=== PATIENT | male | born 1945 | race African-American/Black ===

== ENCOUNTER 2018-10-23 12:46 | Emergency (ER) | payer MEDICARE, OTHER ==
[~2018-10-23] VITALS: Ht 170.2 cm; Wt 73.0 kg
[~2018-10-23 12:46] MED LIST: BENAZEPRIL; HYDROXYZINE; INDOMETHACIN; METFORMIN; TRIAMCINOLONE
[2018-10-23 13:14] VITALS: BP 154/78
== END 2018-10-23 14:36 | disposition home or self-care (01) ==
LOC: ER 12:56
DX: Z00.8 Encounter for other general examination (principal); I10 Essential (primary) hypertension
CPT/HCPCS: 99281

== ENCOUNTER 2022-01-08 14:29 | Inpatient (IN) | payer OTHER, MEDICAID ==
[~2022-01-08] VITALS: Ht 167.6 cm; Wt 79.4 kg
[2022-01-08 15:21] LABS: BASOPHILS % 0.6 % (0.0-2.0); EOSINOPHILS % 4.2 % (0.0-5.0); HEMATOCRIT. 41.3 % (42.0-52.0); HEMOGLOBIN. 13.4 g/dL (14.0-18.0); LYMPHOCYTES % 19.5 % (20.0-50.0); MEAN CORPUSCULAR HEMOGLOBIN 30.8 pg (28.0-32.0); MEAN CORPUSCULAR VOLUME 94.9 fL (80.0-94.0); MONOCYTES % 10.3 % (2.0-8.0); NEUTROPHILS % 65.4 % (40.0-76.0); PLATELET 167 x1000/uL (130-400); RED BLOOD CELL COUNT 4.35 mill/uL (4.7-6.1); RED CELL DISTRIBUTION WIDTH 13.4 % (11.6-14.6)
[2022-01-08] MEDS ORDERED: SODIUM CHLORIDE 0.9% 1,000 ML IV ONE (15:45)
[2022-01-08] MEDS ORDERED: KCL 10MEQ/50ML PREMIX 50 ML IV ONE (15:45)
[2022-01-08] MEDS ORDERED: KCL 10MEQ/50ML PREMIX 50 ML IV NR (16:15)
[2022-01-08] MEDS ORDERED: ENOXAPARIN 40MG/0.4ML SYR SUBCUT SCH (19:30)
[2022-01-08] MEDS ORDERED: MAGNESIUM/ALUMINUM HYDROXIDE/SIMETHICONE 30ML UDC PO PRN (19:30)
[2022-01-08] MEDS ORDERED: NITROGLYCERIN 0.4MG TABLET SL SL PRN (19:30)
[2022-01-08] MEDS ORDERED: CLONIDINE 0.1MG TABLET PO PRN (19:30)
[2022-01-08] MEDS ORDERED: ACETAMINOPHEN 325MG TABLET PO PRN (19:30)
[2022-01-08] MEDS ORDERED: ONDANSETRON HCL 4MG/2ML INJ IV PRN (19:30)
[2022-01-08] MEDS ORDERED: GUAIFENESIN 200MG/10ML SUGAR FREE UDC PO PRN (19:30)
[2022-01-08] MEDS ORDERED: ZOLPIDEM TARTRATE 5MG TABLET PO PRN (19:30)
[2022-01-08] MEDS ORDERED: KETOROLAC 15MG/ML VIAL IV PRN (19:30)
[2022-01-08] MEDS ORDERED: IPRATROPIUM/ALBUTEROL 0.5-3(2.5)MG/3ML NEB NEB PRN (19:30)
[2022-01-08] MEDS ORDERED: DEXTROSE 50% WATER 50ML SYRINGE IV PRN (20:30)
[2022-01-08 21:13] LABS: ETHANOL BLOOD < 10 mg/dL
[2022-01-08 21:14] LABS: TOTAL IRON BINDING CAPACITY 262 ug/dL (250-450)
[2022-01-08 21:15] LABS: LDL CHOLESTEROL 127 mg/dL (5-100)
[2022-01-08] MEDS ORDERED: SODIUM CHLORIDE 0.9% 1000ML BAG (SEPSIS BOLUS) IV NR (21:15)
[2022-01-08 21:18] LABS: HDL CHOLESTEROL 44 mg/dL (40-59); T4 FREE 1.11 ng/dL (0.76-1.46)
[2022-01-08 21:23] LABS: CREATINE KINASE 179 IU/L (39-308)
[2022-01-08 22:19] LABS: FOLIC ACID (FOLATE) SERUM >20 ng/mL ng/mL (>5.38)
[2022-01-08 22:29] LABS: VITAMIN B12 SERUM 663 pg/mL (211-911)
[2022-01-08] MEDS: FAMOTIDINE 20MG TABLET PO SCH (22:38)
[2022-01-08] MEDS: ENOXAPARIN 30MG/0.3ML SYR SUBCUT SCH (22:40)
[2022-01-08] MEDS: BLOOD SUGAR DIAGNOSTIC STRIP TEST SCH (22:52)
[2022-01-09] MEDS: SODIUM CHLORIDE 0.9% 1,000 ML IV SCH ×3 (00:35→22:17)
[2022-01-09] MEDS: INSULIN LISPRO 100 UNITS/ML SUBCUT SCH ×5 (01:34→21:00)
[2022-01-09 06:10] LABS: BASOPHILS % 0.5 % (0.0-2.0); EOSINOPHILS % 6.3 % (0.0-5.0); HEMATOCRIT. 35.6 % (42.0-52.0); HEMOGLOBIN. 11.6 g/dL (14.0-18.0); MEAN CORPUSCULAR HEMOGLOBIN 30.8 pg (28.0-32.0); MEAN CORPUSCULAR VOLUME 94.3 fL (80.0-94.0); MEAN PLATELET VOLUME 10.5 fl (7.4-10.4); MONOCYTES % 11.3 % (2.0-8.0); NEUTROPHILS % 63.9 % (40.0-76.0); PLATELET 154 x1000/uL (130-400); RED BLOOD CELL COUNT 3.77 mill/uL (4.7-6.1); RED CELL DISTRIBUTION WIDTH 13.6 % (11.6-14.6)
[2022-01-09 06:14] LABS: CLARITY URINE CLEAR (CLEAR); COLOR URINE YELLOW (YELLOW); KETONES URINE 1+ (NEGATIVE); LEUKOCYTE ESTERASE URINE TRACE (NEGATIVE); NITRITE URINE NEGATIVE (NEGATIVE); OCCULT BLOOD URINE NEGATIVE (NEGATIVE); PH URINE 6.5 (4.5-8.0); PROTEIN URINE TRACE (NEGATIVE); SPECIFIC GRAVITY URINE 1.021 (1.005-1.030)
[2022-01-09 06:16] LABS: CHLORIDE 118 mEq/L (98-107)
[2022-01-09 06:21] LABS: PHOSPHORUS 2.7 mg/dL (2.5-4.9)
[2022-01-09 06:26] LABS: *AMPHETAMINES SCREEN URINE NEGATIVE (NEGATIVE); *BARBITURATES SCREEN URINE NEGATIVE (NEGATIVE); *BENZODIAZEPINES SCREEN URINE NEGATIVE (NEGATIVE); *COCAINE SCREEN URINE NEGATIVE (NEGATIVE); METHADONE URINE SCREEN NEGATIVE (NEGATIVE)
[2022-01-09 06:27] LABS: CANNABINOID URINE SCREEN NEGATIVE (NEGATIVE); OPIATES URINE SCREEN NEGATIVE (NEGATIVE); PHENCYCLIDINE URINE SCREEN NEGATIVE (NEGATIVE)
[2022-01-09] MEDS: BLOOD SUGAR DIAGNOSTIC STRIP TEST SCH ×4 (07:14→21:00)
[2022-01-09 09:15] VITALS: BP 156/67
[2022-01-09 09:30] VITALS: BP 157/67
[2022-01-09] MEDS: ASPIRIN 325MG EC TABLET PO SCH (09:46)
[2022-01-09] MEDS ORDERED: POTASSIUM CHLORIDE 20MEQ TABLET SR PO NR (11:00)
[2022-01-09 12:00] VITALS: BP 141/55
[2022-01-09 16:25] VITALS: BP 145/61
[2022-01-09 20:00] VITALS: BP 133/68
[2022-01-09] MEDS: FAMOTIDINE 20MG TABLET PO SCH (22:16)
[2022-01-09] MEDS: ENOXAPARIN 30MG/0.3ML SYR SUBCUT SCH (22:16)
[2022-01-10] VITALS: BP 127/52
[2022-01-10 04:00] VITALS: BP 139/59
[2022-01-10] MEDS: BLOOD SUGAR DIAGNOSTIC STRIP TEST SCH ×4 (06:10→20:34)
[2022-01-10] MEDS: INSULIN LISPRO 100 UNITS/ML SUBCUT SCH ×4 (07:50→20:34)
[2022-01-10 08:08] VITALS: BP 120/75
[2022-01-10] MEDS: ASPIRIN 325MG EC TABLET PO SCH (08:57)
[2022-01-10] MEDS ORDERED: PNEUMOCOCCAL 23-VAL P-SAC VAC 0.5 ML IM ONE (09:00)
[2022-01-10] MEDS ORDERED: INFLUENZA VACCINE 05/PF 0.5 ML SYRINGE IM ONE (09:00)
[2022-01-10 12:04] VITALS: BP 135/48
[2022-01-10 12:43] LABS: BASOPHILS % 0.5 % (0.0-2.0); EOSINOPHILS % 7.4 % (0.0-5.0); HEMATOCRIT. 34.9 % (42.0-52.0); HEMOGLOBIN. 11.8 g/dL (14.0-18.0); LYMPHOCYTES % 18.8 % (20.0-50.0); MEAN CORPUSCULAR VOLUME 91.6 fL (80.0-94.0); MEAN PLATELET VOLUME 10.1 fl (7.4-10.4); NEUTROPHILS % 64.3 % (40.0-76.0); PLATELET 131 x1000/uL (130-400); RED BLOOD CELL COUNT 3.82 mill/uL (4.7-6.1); RED CELL DISTRIBUTION WIDTH 13.4 % (11.6-14.6)
[2022-01-10] MEDS: SODIUM CHLORIDE 0.9% 1,000 ML IV SCH (13:01)
[2022-01-10 13:03] LABS: CHLORIDE 118 mEq/L (98-107)
[2022-01-10 13:12] LABS: PHOSPHORUS 2.4 mg/dL (2.5-4.9)
[2022-01-10 16:30] VITALS: BP 138/61
[2022-01-10 20:00] VITALS: BP 144/58
[2022-01-10] MEDS: ENOXAPARIN 30MG/0.3ML SYR SUBCUT SCH (20:37)
[2022-01-10] MEDS: FAMOTIDINE 20MG TABLET PO SCH (20:37)
[2022-01-11] VITALS: BP 138/61
[2022-01-11] MEDS: SODIUM CHLORIDE 0.9% 1,000 ML IV SCH ×2 (00:50→14:10)
[2022-01-11 04:00] VITALS: BP 139/58
[2022-01-11] MEDS: BLOOD SUGAR DIAGNOSTIC STRIP TEST SCH ×4 (06:34→20:55)
[2022-01-11] MEDS: INSULIN LISPRO 100 UNITS/ML SUBCUT SCH ×4 (07:50→20:55)
[2022-01-11 08:06] VITALS: BP 155/69
[2022-01-11] MEDS: ASPIRIN 325MG EC TABLET PO SCH (09:09)
[2022-01-11 12:00] VITALS: BP 151/70
[2022-01-11 16:00] VITALS: BP 141/65
[2022-01-11 20:00] VITALS: BP 152/71
[2022-01-11] MEDS: ENOXAPARIN 30MG/0.3ML SYR SUBCUT SCH (20:56)
[2022-01-11] MEDS: FAMOTIDINE 20MG TABLET PO SCH (20:57)
[2022-01-12] VITALS: BP 140/61
[2022-01-12] MEDS: SODIUM CHLORIDE 0.9% 1,000 ML IV SCH ×2 (02:57→13:01)
[2022-01-12 04:00] VITALS: BP 145/68
[2022-01-12 06:27] LABS: BASOPHILS % 0.6 % (0.0-2.0); HEMOGLOBIN. 10.5 g/dL (14.0-18.0); MONOCYTES % 11.1 % (2.0-8.0)
[2022-01-12 06:31] LABS: EOSINOPHILS % 8.7 % (0.0-5.0); HEMATOCRIT. 30.7 % (42.0-52.0); LYMPHOCYTES % 24.2 % (20.0-50.0); MEAN CORPUSCULAR HEMOGLOBIN 31.2 pg (28.0-32.0); MEAN CORPUSCULAR VOLUME 91.4 fL (80.0-94.0); MEAN PLATELET VOLUME 10.7 fl (7.4-10.4); NEUTROPHILS % 55.4 % (40.0-76.0); PLATELET 125 x1000/uL (130-400); RED BLOOD CELL COUNT 3.36 mill/uL (4.7-6.1); RED CELL DISTRIBUTION WIDTH 13.4 % (11.6-14.6)
[2022-01-12] MEDS: BLOOD SUGAR DIAGNOSTIC STRIP TEST SCH ×4 (07:20→21:06)
[2022-01-12 07:30] LABS: CHLORIDE 117 mEq/L (98-107)
[2022-01-12] MEDS: INSULIN LISPRO 100 UNITS/ML SUBCUT SCH ×4 (07:50→21:00)
[2022-01-12 08:00] VITALS: BP 155/69
[2022-01-12] MEDS: ASPIRIN 325MG EC TABLET PO SCH (09:46)
[2022-01-12] MEDS ORDERED: POTASSIUM CHLORIDE 20MEQ TABLET SR PO NR (11:45)
[2022-01-12 12:00] VITALS: BP 163/77
[2022-01-12 15:00] VITALS: BP 161/110
[2022-01-12 20:00] VITALS: BP 157/75
[2022-01-12] MEDS: ENOXAPARIN 40MG/0.4ML SYR SUBCUT SCH (22:21)
[2022-01-12] MEDS: FAMOTIDINE 20MG TABLET PO SCH (22:22)
[2022-01-13] VITALS: BP 149/70
[2022-01-13 04:00] VITALS: BP 146/68
[2022-01-13] MEDS: SODIUM CHLORIDE 0.9% 1,000 ML IV SCH ×3 (05:12→20:28)
[2022-01-13] MEDS: BLOOD SUGAR DIAGNOSTIC STRIP TEST SCH ×4 (06:35→20:26)
[2022-01-13] MEDS: INSULIN LISPRO 100 UNITS/ML SUBCUT SCH ×4 (07:50→20:26)
[2022-01-13 08:00] VITALS: BP 161/72
[2022-01-13] MEDS: ASPIRIN 325MG EC TABLET PO SCH (09:41)
[2022-01-13] MEDS: DOCUSATE SODIUM 100MG CAPSULE PO PRN (09:41)
[2022-01-13 20:00] VITALS: BP 161/59
[2022-01-13] MEDS: FAMOTIDINE 20MG TABLET PO SCH (20:26)
[2022-01-13] MEDS: ENOXAPARIN 40MG/0.4ML SYR SUBCUT SCH (20:26)
[2022-01-13 23:53] VITALS: BP 175/73
[2022-01-14] MEDS ORDERED: HYDRALAZINE HCL 25MG TABLET PO NR
[2022-01-14 04:07] VITALS: BP 152/77
[2022-01-14] MEDS: HYDRALAZINE HCL 25MG TABLET PO SCH ×4 (06:27→23:35)
[2022-01-14] MEDS: BLOOD SUGAR DIAGNOSTIC STRIP TEST SCH ×4 (06:27→20:41)
[2022-01-14] MEDS: INSULIN LISPRO 100 UNITS/ML SUBCUT SCH ×4 (07:50→20:45)
[2022-01-14 08:00] VITALS: BP 145/77
[2022-01-14] MEDS: ASPIRIN 325MG EC TABLET PO SCH (09:00)
[2022-01-14] MEDS: DOCUSATE SODIUM 100MG CAPSULE PO PRN (09:00)
[2022-01-14 12:00] VITALS: BP 135/84
[2022-01-14 16:09] VITALS: BP 134/57
[2022-01-14 20:00] VITALS: BP 150/69
[2022-01-14] MEDS: FAMOTIDINE 20MG TABLET PO SCH (20:42)
[2022-01-14] MEDS: ENOXAPARIN 40MG/0.4ML SYR SUBCUT SCH (20:42)
[2022-01-15] VITALS: BP 146/72
[2022-01-15 04:00] VITALS: BP 128/88
[2022-01-15] MEDS: HYDRALAZINE HCL 25MG TABLET PO SCH ×3 (05:22→18:39)
[2022-01-15] MEDS: BLOOD SUGAR DIAGNOSTIC STRIP TEST SCH ×3 (06:23→21:59)
[2022-01-15] MEDS: INSULIN LISPRO 100 UNITS/ML SUBCUT SCH ×4 (07:35→21:00)
[2022-01-15 08:00] VITALS: BP 122/64
[2022-01-15] MEDS: ACETAMINOPHEN 325MG TABLET PO PRN ×2 (08:03→13:45)
[2022-01-15] MEDS: ASPIRIN 325MG EC TABLET PO SCH (09:00)
[2022-01-15] MEDS ORDERED: PIPERACILLIN/TAZOBACTAM 3.375 G in DEXTROSE 5% WATER 50 ML IV SCH (10:00)
[2022-01-15 11:57] LABS: HEMATOCRIT. 31.6 % (42.0-52.0); HEMOGLOBIN. 10.5 g/dL (14.0-18.0); MEAN CORPUSCULAR HEMOGLOBIN 31.1 pg (28.0-32.0); MEAN CORPUSCULAR VOLUME 93.6 fL (80.0-94.0); RED BLOOD CELL COUNT 3.37 mill/uL (4.7-6.1); RED CELL DISTRIBUTION WIDTH 13.6 % (11.6-14.6)
[2022-01-15 12:00] VITALS: BP 121/60
[2022-01-15] MEDS ORDERED: LIDOCAINE HCL 1% 20ML VIAL (Pyxis) INJ ONE (12:56)
[2022-01-15 13:04] LABS: PLATELET 142 x1000/uL (130-400)
[2022-01-15] MEDS ORDERED: VANCOMYCIN 1GM PMX (XELLIA) 200 ML IV NR (14:00)
[2022-01-15] MEDS: HYDROCODONE/ACETAMINOPHEN 5/325MG TABLET PO PRN ×2 (14:11→20:30)
[2022-01-15] MEDS ORDERED: NALOXONE HCL 0.4MG/ML VIAL IV PRN (14:15)
[2022-01-15 16:00] VITALS: BP 141/79
[2022-01-15] MEDS: SODIUM CHLORIDE 0.45% 1,000 ML IV SCH (17:55)
[2022-01-15] MEDS ORDERED: POTASSIUM CHLORIDE 20MEQ TABLET SR PO NR (18:30)
[2022-01-15] MEDS: ENOXAPARIN 40MG/0.4ML SYR SUBCUT SCH (22:07)
[2022-01-15] MEDS: PIPERACILLIN/TAZOBACTAM 3.375 G in DEXTROSE 5% WATER 50 ML IV SCH (22:07)
[2022-01-15] MEDS: FAMOTIDINE 20MG TABLET PO SCH (22:07)
[2022-01-16] MEDS: HYDRALAZINE HCL 25MG TABLET PO SCH ×5 (01:14→23:04)
[2022-01-16] MEDS ORDERED: VANCOMYCIN 500 MG in DEXT 5% WATER 100 ML IV SCH (02:00)
[2022-01-16] MEDS ORDERED: PIPERACILLIN/TAZOBACTAM 3.375 G in DEXTROSE 5% WATER 50 ML IV SCH (02:00)
[2022-01-16] MEDS: PIPERACILLIN/TAZOBACTAM 3.375 G in DEXTROSE 5% WATER 50 ML IV SCH ×2 (05:34→14:41)
[2022-01-16] MEDS: SODIUM CHLORIDE 0.45% 1,000 ML IV SCH ×2 (06:08→19:25)
[2022-01-16] MEDS: BLOOD SUGAR DIAGNOSTIC STRIP TEST SCH ×4 (06:09→21:06)
[2022-01-16] MEDS: INSULIN LISPRO 100 UNITS/ML SUBCUT SCH ×4 (06:09→21:00)
[2022-01-16 08:00] VITALS: BP 141/84
[2022-01-16] MEDS: ASPIRIN 325MG EC TABLET PO SCH (08:57)
[2022-01-16] MEDS: HYDROCODONE/ACETAMINOPHEN 5/325MG TABLET PO PRN ×2 (11:53→17:59)
[2022-01-16 12:00] VITALS: BP 148/64
[2022-01-16 16:00] VITALS: BP 142/66
[2022-01-16 17:55] LABS: HEMATOCRIT. 29.6 % (42.0-52.0); HEMOGLOBIN. 9.9 g/dL (14.0-18.0); MEAN CORPUSCULAR HEMOGLOBIN 31.1 pg (28.0-32.0); MEAN CORPUSCULAR VOLUME 92.7 fL (80.0-94.0); MEAN PLATELET VOLUME 10.7 fl (7.4-10.4); PLATELET 123 x1000/uL (130-400); RED BLOOD CELL COUNT 3.19 mill/uL (4.7-6.1)
[2022-01-16 18:00] LABS: CHLORIDE 115 mEq/L (98-107)
[2022-01-16 20:00] VITALS: BP 128/60
[2022-01-16] MEDS: ENOXAPARIN 40MG/0.4ML SYR SUBCUT SCH (20:00)
[2022-01-16 20:15] LABS: PLATELET ESTIMATE SLIGHTLY DECREASED
[2022-01-16] MEDS ORDERED: CEFTRIAXONE 1 G PREMIX 50 ML IV SCH (20:30)
[2022-01-16] MEDS: FAMOTIDINE 20MG TABLET PO SCH (21:46)
[2022-01-16] MEDS: CEFTRIAXONE 1,000 MG in DEXTROSE 5% WATER 50 ML IV SCH (21:46)
[2022-01-16] MEDS: ACETAMINOPHEN 325MG TABLET PO PRN (23:05)
[2022-01-17] VITALS: BP 131/62
[2022-01-17 04:00] VITALS: BP 144/64
[2022-01-17] MEDS: BLOOD SUGAR DIAGNOSTIC STRIP TEST SCH ×4 (06:37→21:00)
[2022-01-17] MEDS: INSULIN LISPRO 100 UNITS/ML SUBCUT SCH ×4 (06:38→21:00)
[2022-01-17] MEDS: HYDRALAZINE HCL 25MG TABLET PO SCH ×3 (06:42→17:17)
[2022-01-17 08:00] VITALS: BP 135/67
[2022-01-17] MEDS: ASPIRIN 325MG EC TABLET PO SCH (08:53)
[2022-01-17] MEDS: DOCUSATE SODIUM 100MG CAPSULE PO PRN ×2 (08:53→17:17)
[2022-01-17] MEDS: SODIUM CHLORIDE 0.45% 1,000 ML IV SCH (08:54)
[2022-01-17] MEDS: HYDROCODONE/ACETAMINOPHEN 5/325MG TABLET PO PRN (09:04)
[2022-01-17 12:00] VITALS: BP 98/50
[2022-01-17] MEDS ORDERED: LACTULOSE 20G/30ML UDC PO NR (12:00)
[2022-01-17 16:00] VITALS: BP 134/68
[2022-01-17] MEDS: ENOXAPARIN 40MG/0.4ML SYR SUBCUT SCH (20:00)
[2022-01-18] MEDS: HYDRALAZINE HCL 25MG TABLET PO SCH ×4 (00:06→16:49)
[2022-01-18] MEDS: CEFTRIAXONE 1,000 MG in DEXTROSE 5% WATER 50 ML IV SCH (00:06)
[2022-01-18] MEDS: FAMOTIDINE 20MG TABLET PO SCH (00:06)
[2022-01-18] MEDS: SODIUM CHLORIDE 0.45% 1,000 ML IV SCH ×2 (00:07→12:39)
[2022-01-18] MEDS: INSULIN LISPRO 100 UNITS/ML SUBCUT SCH ×3 (06:21→16:38)
[2022-01-18] MEDS: BLOOD SUGAR DIAGNOSTIC STRIP TEST SCH ×3 (06:21→16:37)
[2022-01-18 08:00] VITALS: BP 139/71
[2022-01-18] MEDS: ASPIRIN 325MG EC TABLET PO SCH (09:45)
[2022-01-18 10:14] LABS: HEMATOCRIT. 28.2 % (42.0-52.0); HEMOGLOBIN. 9.6 g/dL (14.0-18.0); MEAN CORPUSCULAR HEMOGLOBIN 30.9 pg (28.0-32.0); MEAN CORPUSCULAR VOLUME 91.3 fL (80.0-94.0); PLATELET 113 x1000/uL (130-400); RED BLOOD CELL COUNT 3.09 mill/uL (4.7-6.1); RED CELL DISTRIBUTION WIDTH 13.5 % (11.6-14.6)
[2022-01-18 10:30] LABS: CHLORIDE 114 mEq/L (98-107)
[2022-01-18 12:00] VITALS: BP 145/74
[2022-01-18 13:38] LABS: PLATELET ESTIMATE SLIGHTLY DECREASED
[2022-01-18] MEDS: HYDROCODONE/ACETAMINOPHEN 5/325MG TABLET PO PRN (14:05)
[2022-01-18] MEDS ORDERED: POTASSIUM CHLORIDE 20MEQ TABLET SR PO NR (14:45)
[2022-01-18] MEDS ORDERED: ASPI-1497 MT (14:55)
[2022-01-18] MEDS ORDERED: LEVO500T89 MT (14:55)
[2022-01-18] MEDS ORDERED: ALBU90AE INH (14:55)
[2022-01-18] MEDS ORDERED: HYDR-4135 MT (14:55)
[2022-01-18 16:00] VITALS: BP 145/78
[2022-01-18] MEDS: ACETAMINOPHEN 325MG TABLET PO PRN (16:49)
[2022-01-18 17:30] VITALS: BP 141/74
== END 2022-01-18 19:40 | DRG 91 ==
LOC: ER 14:29 → MICUSO 17:58 → EDBEDREQ 18:26 → EDBEDREQTM 18:26 → EDBEDREQSVC 19:42 → EDBEDREQTM 19:42 → SUPCPDRO 21:00 → 6WST 01-09 09:04 → 7EST 01-15 12:07
PROVIDERS: ADMIT Internal Medicine; ATTEND Internal Medicine
PROC: 05HY33Z Insertion of Infusion Device into Upper Vein, Percutaneous Approach (ICD-10-PCS; principal; 2022-01-15)
PROC: B54NZZA Ultrasonography of Left Upper Extremity Veins, Guidance (ICD-10-PCS; 2022-01-15)
DX: G92.8 Other toxic encephalopathy (principal); U07.1 COVID-19; E87.2 Acidosis; N17.9 Acute kidney failure, unspecified; I50.32 Chronic diastolic (congestive) heart failure; I13.0 Hypertensive heart and chronic kidney disease with heart failure and stage 1 through stage 4 chronic kidney disease, or unspecified chronic kidney disease; E87.6 Hypokalemia; E86.0 Dehydration; D64.9 Anemia, unspecified; R26.89 Other abnormalities of gait and mobility; M88.88 Osteitis deformans of other bones; N18.9 Chronic kidney disease, unspecified; N20.0 Calculus of kidney; E11.65 Type 2 diabetes mellitus with hyperglycemia; E11.22 Type 2 diabetes mellitus with diabetic chronic kidney disease; R00.1 Bradycardia, unspecified; D69.6 Thrombocytopenia, unspecified; Z86.73 Personal history of transient ischemic attack (TIA), and cerebral infarction without residual deficits; Z79.4 Long term (current) use of insulin; G90.9 Disorder of the autonomic nervous system, unspecified
CPT/HCPCS: 36415; 71045; 72170; 72192; 73552; 76770; 76937; 80048; 80053; 80061; 80076; 80305; 80320; 81003; 82550; 82553; 82607; 82746; 82962; 83036; 83540; 83550; 83605; 83735; 83880; 84100; 84145; 84153; 84439; 84443; 84484; 85025; 86141; 87426; 90686; 90732; 93005; 93306; 93970; 97110; 97162; 97166; 97535; 99285; C1725; C1769; C1892; J0696; J1650; J1815; J2543; J3370; J3480; J3490; J7030; J7060; A4315; G0103; G0480